=== PATIENT | female | born 1955 | race Caucasian/White ===

== ENCOUNTER 2018-03-03 16:15 | Inpatient (IN) | payer OTHER ==
[~2018-03-03] VITALS: Ht 162.6 cm; Wt 113.9 kg
[2018-03-03] MEDS ORDERED: 0.9 % SODIUM CHLORIDE 10 ML DISP.SYRIN. IV PRN (16:30)
[2018-03-03] MEDS ORDERED: IPRATRPIUM/ALBUTEROL 0.5/2.5MG 3 ML NEBU. ONE (16:40)
--- NOTE | 2018-03-03 16:44 | RAD ---
Single view of the chest. 03/03/2018 4:21 PM Indication: CHEST PAIN Comparison: None Findings: There is no focal consolidation. There is no pleural effusion or pneumothorax. The cardiomediastinal silhouette and pulmonary vasculature are within normal limits. No acute osseous abnormalities are seen. Impression: No evidence of acute cardiopulmonary process. Electronically signed by: Fausto Murphy MD (03/03/2018 4:40 PM) [facility]
[2018-03-03 16:45] LABS: BASO # 0.1 x10^3/uL (0.0-0.2); BASO % 1 % (0-3); EOS % 0 % (0-3); HEMATOCRIT 37.6 % (36.0-47.0); LYMPH # 1.1 x10^3/uL (1.0-4.8); LYMPH % 10 % (24-48); MEAN CORPUSCULAR HEMOGLOBIN 29 pg (25-35); MEAN CORPUSCULAR HGB CONC 35 g/dL (31-37); MEAN CORPUSCULAR VOLUME 83 fL (79-100); MONO # 0.5 x10^3/uL (0.0-1.1); MONO % 5 % (0-9); NEUT # 8.9 x10^3uL (1.8-7.7); NEUT % 84 % (31-73); PLATELET COUNT 181 x10^3/uL (140-400); RED BLOOD COUNT 4.55 x10^6/uL (3.50-5.40); RED CELL DISTRIBUTION WIDTH 13.2 % (11.5-14.5); WHITE BLOOD COUNT 10.6 x10^3/uL (4.0-11.0)
[2018-03-03] MEDS ORDERED: IPRATRPIUM/ALBUTEROL 0.5/2.5MG 3 ML NEBU. NEB ONE (16:45)
[2018-03-03] MEDS ORDERED: cefTRIAXone IV Push 1 GM VIAL. IVP ONE (16:45)
[2018-03-03] MEDS ORDERED: ACETAMINOPHEN 500 MG TABLET PO ONE (16:45)
[2018-03-03] MEDS: NORMAL SALINE IV SCH ×7 (16:49→22:21)
--- NOTE | 2018-03-03 16:54 | PHYS DOC ---
Adult General Chief Complaint Chief Complaint: SHORTNESS OF BREATH HPI HPI 62-year-old female presents with a several day history of cough and congestion. [facility] and started on doxycycline only took one dose because it really bothered her stomach. She's continued to have some abdominal pain since. Patient states she's been progressively more short of breath, coughing up greenish [place] phlegm and high fever. She states she has no energy. She denies any other significant medical problems.[] Review of Systems Review of Systems Constitutional: Reports fever[] Eyes: Denies change in visual acuity, redness, or eye pain [] HENT: Denies nasal congestion or sore throat [] Respiratory: Productive cough and shortness of breath[] Cardiovascular: No additional information not addressed in HPI [] GI: Denies abdominal pain, nausea, vomiting, bloody stools or diarrhea [] : Denies dysuria or hematuria [] Musculoskeletal: Denies back pain or joint pain [] Integument: Denies rash or skin lesions [] Neurologic: Denies headache, focal weakness or sensory changes [] Endocrine: Denies polyuria or polydipsia [] All other systems were reviewed and found to be within normal limits, except as documented in this note. Current Medications Current Medications Current Medications Medications (Trade) Dose Ordered Sig/Mgean Start Time Stop Time Status Last Admin Dose Admin Acetaminophen (Tylenol) 1,000 mg 1X ONCE 03/03/18 16:45 03/03/18 16:46 DC Albuterol/ Ipratropium (Duoneb) 3 ml STK-MED ONCE 03/03/18 16:40 03/03/18 16:41 DC Ceftriaxone Sodium 1 gm/ Sodium Chloride 50 ml @ 100 mls/hr 1X ONCE 03/03/18 16:30 03/03/18 16:59 UNV Ceftriaxone Sodium (Rocephin) 1 gm 1X ONCE 03/03/18 16:45 03/03/18 16:46 DC Fentanyl Citrate (Fentanyl 2ml Vial) 25 mcg PRN Q15MIN PRN 03/03/18 16:30 03/04/18 16:29 Sodium Chloride 3,330 ml @ 3,330 mls/hr Q1H 03/03/18 16:21 Sodium Chloride (Normal Saline Flush) 10 ml QSHIFT PRN 03/03/18 16:30 Allergies Allergies Allergies Coded Allergies Type Severity Reaction Last Updated Verified doxycycline Allergy Severe severe stomach burning 03/03/18 Yes ether Allergy Severe sob 03/03/18 Yes Physical Exam Physical Exam Constitutional: Well developed, well nourished, no acute distress, appears acutely ill. [] HENT: Normocephalic, atraumatic, bilateral external ears normal, oropharynx moist, no oral exudates, nose normal. [] Eyes: PERRLA, EOMI, conjunctiva normal, no discharge. [] Neck: Normal range of motion, no tenderness, supple, no stridor. [] Cardiovascular:Heart rate regular rhythm, no murmur [] Lungs & Thorax: Bibasilar rales left base greater than right diffuse wheezes[] Abdomen: Bowel sounds normal, soft, no tenderness, no masses, no pulsatile masses. [] Skin: Warm, dry, no erythema, no rash. [] Back: No tenderness, no CVA tenderness. [] Extremities: No tenderness, no cyanosis, no clubbing, ROM intact, no edema. [] Neurologic: Alert and oriented X 3, normal motor function, normal sensory function, no focal deficits noted. [] Psychologic: Affect normal, judgement normal, mood normal. [] Current Patient Data Lab Results Laboratory Tests Test 03/03/18 16:32 White Blood Count 10.6 x10^3/uL (4.0-11.0) Red Blood Count 4.55 x10^6/uL (3.50-5.40) Hemoglobin 13.0 g/dL (12.0-15.5) Hematocrit 37.6 % (36.0-47.0) Mean Corpuscular Volume 83 fL (79-100) Mean Corpuscular Hemoglobin 29 pg (25-35) Mean Corpuscular Hemoglobin Concent 35 g/dL (31-37) Red Cell Distribution Width 13.2 % (11.5-14.5) Platelet Count 181 x10^3/uL (140-400) Neutrophils (%) (Auto) 84 % (31-73) H Lymphocytes (%) (Auto) 10 % (24-48) L Monocytes (%) (Auto) 5 % (0-9) Eosinophils (%) (Auto) 0 % (0-3) Basophils (%) (Auto) 1 % (0-3) Neutrophils # (Auto) 8.9 x10^3uL (1.8-7.7) H Lymphocytes # (Auto) 1.1 x10^3/uL (1.0-4.8) Monocytes # (Auto) 0.5 x10^3/uL (0.0-1.1) Eosinophils # (Auto) 0.0 x10^3/uL (0.0-0.7) Basophils # (Auto) 0.1 x10^3/uL (0.0-0.2) EKG EKG [] Radiology/Procedures Radiology/Procedures [] Impressions: PROCEDURE: PORTABLE CHEST 1V Single view of the chest. 03/03/2018 4:21 PM Indication: CHEST PAIN Comparison: None Findings: There is no focal consolidation. There is no pleural effusion or pneumothorax. The cardiomediastinal silhouette and pulmonary vasculature are within normal limits. No acute osseous abnormalities are seen. Impression: No evidence of acute cardiopulmonary process. EKG: Normal sinus rhythm rate of [address]-T changes Course & Med Decision Making Course & Med Decision Making Pertinent Labs and Imaging studies reviewed. (See chart for details) [ED course: Evaluation reveals a 62-year-old female with what sounds like a 5 day history of progressive respiratory symptoms culminating today and high fever and productive cough. To me, her chest x-ray looks as if there may be a left lower lobe infiltrate however was read as negative. Patient was given IV fluids, Tylenol, Rocephin 1 g IV and a DuoNeb during her stay in the department and she did improve to some degree. Her oxygen saturation on room air was 90%. I spoke with the patient and let her know that she would likely need to stay in the hospital and she was agreeable to do so. I spoke with Dr. ACUNA who agreed to accept the patient for admission.] Dragon Disclaimer Dragon Disclaimer This electronic medical record was generated, in whole or in part, using a voice recognition dictation system. Departure Departure: Impression: Primary Impression: Pneumonia Additional Impression: Hypokalemia Disposition: ADMITTED INPATIENT Admitting Physician: Zoltan Acuna Condition: GUARDED Referrals: NON,STAFF (PCP) Problem Qualifiers Primary Impression: Pneumonia Pneumonia type: due to unspecified organism Laterality: left Lung location : lower lobe of lung Qualified Codes: J18.1 - Lobar pneumonia, unspecified organism MICHAEL FERNANDEZ DO Mar 03, 2018 16:54
[2018-03-03 16:59] LABS: ALBUMIN 2.6 g/dL (3.4-5.0); ALBUMIN/GLOBULIN RATIO 0.7 (1.0-1.7); CREATININE 0.9 mg/dL (0.6-1.0); TOTAL BILIRUBIN 1.1 mg/dL (0.2-1.0); TOTAL PROTEIN 6.6 g/dL (6.4-8.2)
[2018-03-03 17:01] LABS: POTASSIUM 2.7 mmol/L (3.5-5.1)
[2018-03-03] MEDS ORDERED: AZITHROMYCIN 500 MG in IV NORMAL SALINE 250ML 250 ML IV ONE (17:15)
[2018-03-03] MEDS ORDERED: ACETAMINOPHEN 325 MG TABLET PO PRN (17:15)
[2018-03-03] MEDS ORDERED: AZITHROMYCIN 500 MG VIAL. IV ONE (17:18)
[2018-03-03] MEDS ORDERED: IV NORMAL SALINE 250ML 250 ML ONE (17:18)
--- NOTE | 2018-03-03 17:41 | EKG ---
[address] [address] Test Date: 2018-03-03 Test Time: 16:22:27 Pat Name: TRISTON DWYER Department: Room: Gender: F Roof Technician: : 1955 Requested By: MICHAEL FERNANDEZ Order Number: [id number] Reading MD: Measurements Intervals [place] Rate: 90 P: -7 ID: [id number] QRS: -30 QRSD: 86 T: 89 QT: 372 QTc: 459 Interpretive Statements SINUS RHYTHM ABNORMAL LEFT AXIS DEVIATION LEFT ANTERIOR FASCICULAR BLOCK CONSIDER RIGHT VENTRICULAR HYPERTROPHY QRS(T) CONTOUR ABNORMALITY CONSIDER ANTEROSEPTAL MYOCARDIAL DAMAGE T ABNORMALITY IN HIGH LATERAL LEADS ABNORMAL ECG RI6.01 No previous ECG available for comparison
[2018-03-03] MEDS ORDERED: ONDANSETRON ODT 4 MG TAB.RAPDIS PO ONE (17:45)
[2018-03-03] MEDS: POTASSIUM CHLORIDE 20 MEQ TABLET.ER. PO SCH (17:56)
[2018-03-03 18:55] VITALS: BP 94/55
[2018-03-03] MEDS ORDERED: ATOR10TA60 PO (20:03)
[2018-03-03] MEDS ORDERED: NYST15CR2 TP (20:03)
[2018-03-03] MEDS ORDERED: METO1TAB28 PO (20:03)
[2018-03-03] MEDS ORDERED: LOSA50TA6 PO (20:03)
[2018-03-03] MEDS ORDERED: INDA2.5T PO (20:03)
[2018-03-03] MEDS ORDERED: LIRA0.6P2 SQ (20:03)
[2018-03-03] MEDS ORDERED: GLIM4TAB2 PO (20:03)
[2018-03-03] MEDS ORDERED: SITA100T PO (20:03)
[2018-03-03] MEDS ORDERED: ACET325T9 PO (20:04)
[2018-03-03] MEDS: IV NORMAL SALINE 1,000ML 1,000 ML IV SCH (20:11)
[2018-03-03] MEDS: IPRATRPIUM/ALBUTEROL 0.5/2.5MG 3 ML NEBU. NEB SCH (21:00)
[2018-03-03 22:36] VITALS: BP 118/72
[2018-03-03 23:35] LABS: BACTERIA,URINE 0 /HPF (0-FEW); BILIRUBIN,URINE NEG (NEG); CLARITY,URINE CLEAR; COLOR,URINE YELLOW; GLUCOSE,URINE NEG (NEG); NITRITE,URINE NEG (NEG); RBC,URINE 0 /HPF (0-2); SQUAMOUS EPITHELIAL CELL,UR FEW /LPF; UROBILINOGEN,URINE 0.2 mg/dL (0.2 mg/dL)
[2018-03-04] MEDS: ONDANSETRON PF 4 MG/2 ML VIAL. IV PRN ×2 (03:28→08:57)
[2018-03-04] MEDS: IV NORMAL SALINE 1,000ML 1,000 ML IV SCH ×2 (04:19→10:05)
[2018-03-04 05:00] VITALS: BP 119/65
[2018-03-04] MEDS: IPRATRPIUM/ALBUTEROL 0.5/2.5MG 3 ML NEBU. NEB SCH ×3 (05:55→14:41)
[2018-03-04] MEDS ORDERED: ACETAMINOPHEN 325 MG TABLET PO PRN (06:00)
[2018-03-04] MEDS ORDERED: NYSTATIN/TRIAMCIN TOPICAL CREAM 15GM TUBE. TP PRN (06:15)
[2018-03-04 07:43] LABS: HEMATOCRIT 31.6 % (36.0-47.0); HEMOGLOBIN 11.1 g/dL (12.0-15.5); RED BLOOD COUNT 3.82 x10^6/uL (3.50-5.40); RED CELL DISTRIBUTION WIDTH 13.1 % (11.5-14.5); WHITE BLOOD COUNT 7.5 x10^3/uL (4.0-11.0)
[2018-03-04 07:54] LABS: ALBUMIN/GLOBULIN RATIO 0.5 (1.0-1.7); CALCIUM 7.1 mg/dL (8.5-10.1); CREATININE 0.7 mg/dL (0.6-1.0); GFR 84.2; TOTAL BILIRUBIN 0.8 mg/dL (0.2-1.0); TOTAL PROTEIN 5.9 g/dL (6.4-8.2)
[2018-03-04 07:57] LABS: POTASSIUM 2.8 mmol/L (3.5-5.1)
[2018-03-04] MEDS: POTASSIUM CHLORIDE 10MEQ 50 ML IV SCH ×4 (08:59→12:10)
[2018-03-04] MEDS: LIRAGLUTIDE SQ SCH (09:00)
[2018-03-04] MEDS ORDERED: INDAPAMIDE 1.25 MG TABLET PO SCH (09:00)
[2018-03-04] MEDS: POTASSIUM CHLORIDE 20 MEQ TABLET.ER. PO SCH ×2 (09:00→19:49)
[2018-03-04] MEDS ORDERED: hydroCHLOROthiazide 12.5 MG CAPSULE PO SCH (09:00)
[2018-03-04] MEDS ORDERED: HYDROcodone/APAP 5/325MG 1 TAB TABLET PO PRN (09:45)
[2018-03-04] MEDS: LINAGLIPTIN 5 MG TABLET PO SCH (10:17)
[2018-03-04] MEDS: GLIMEPIRIDE 2 MG TABLET PO SCH ×2 (10:17→17:22)
[2018-03-04] MEDS: LOSARTAN 50 MG TABLET. PO SCH (10:18)
[2018-03-04] MEDS: METOPROLOL SUCC 24HR ER 50 MG TAB.ER.24H. PO SCH (10:18)
[2018-03-04] MEDS: ENOXAPARIN 40 MG/0.4 ML SYRINGE. SQ SCH ×2 (10:19→19:49)
[2018-03-04 11:01] VITALS: BP 109/65
[2018-03-04 15:25] VITALS: BP 95/61
[2018-03-04 16:02] LABS: CALCIUM 7.9 mg/dL (8.5-10.1); CREATININE 0.8 mg/dL (0.6-1.0); GFR 72.2; POTASSIUM 3.1 mmol/L (3.5-5.1)
--- NOTE | 2018-03-04 17:16 | HP ---
ADMIT DATE: 03/03/2018 HISTORY OF PRESENT ILLNESS: The patient is a 62-year-old female patient, who came to the Emergency Room complaining of cough, chest congestion. This started last . She was seen last Wednesday at the [facility] and was started on doxycycline. She apparently took only one dose and that bothered her stomach. She continued to have abdominal pain. Since then, the patient states that she has been progressively more short of breath, coughing up greenish [place] phlegm with high fever. She has also what seems to be shaking chills, stating that she has no energy and she was evaluated in the Emergency Room, although the x-ray did not show any pneumonia. She has prominent crackles in the left side posteriorly and a decision was made to admit her with the diagnosis of ____. DOM ACUNA MD DR: CECILIA/opal JOB#: [id number] / [id number]
[2018-03-04] MEDS: cefTRIAXone IV Push 1 GM VIAL. IVP SCH (17:22)
--- NOTE | 2018-03-04 17:44 | HP ---
ADMIT DATE: 03/03/2018 HISTORY OF PRESENT ILLNESS: The patient is a 62-year-old female patient who came to the Emergency Room, complaining of several days history of cough and chest congestion, started last about a week ago. Her symptoms have worsened and on Wednesday, she went to [facility] and was started on doxycycline. She took only one dose because it bothered her stomach and she continued to have some abdominal pain since then. Her shortness of breath has progressively worsened. She continued to have cough with greenish sputum and high fever. She has also episodes of shaking chills and was evaluated in the Emergency Room and was admitted with diagnosis of community-acquired pneumonia and was started with IV Rocephin and Zithromax. PAST MEDICAL HISTORY: Significant for hypertension, type 2 diabetes mellitus, hypertriglyceridemia, fibromyalgia. PAST SURGICAL HISTORY: Significant for partial small ____ resection, wisdom tooth extraction and appendectomy. ALLERGIES: SHE IS ALLERGIC TO ETHER AND DOXYCYCLINE. MEDICATIONS: She is currently on following medications: She is on atorvastatin calcium 10 mg at bedtime, metoprolol succinate/hydrochlorothiazide and Dutoprol 100/12.5 mg 1 tablet once a day, losartan potassium 50 mg once a day, acetaminophen 650 mg every 6 hours, indapamide 2.5 mg daily, sitagliptin phosphate for Januvia 100 mg once a day, Victoza 30 units subcutaneously daily, glimepiride 4 mg tablet twice a day and nystatin-triamcinolone cream applied topically twice a day. FAMILY HISTORY: Significant for one brother who at the age of 76 because of complication of surgery. Her father in his 70s and mother at the age of 67, exact cause of is not clear. SOCIAL HISTORY: She is , has a son and a daughter. She never smoked, does not drink alcohol or recreational drugs. She is a homemaker REVIEW OF SYSTEMS: The patient denied any blurring of vision, did have cataract and diplopia since childhood. Denied any glaucoma or macular degeneration. She has never had any diabetic retinopathy and did not require any laser photocoagulation. Denied any tinnitus, earache or sensorineural deafness. Denied any nosebleeds, stuffy nose or postnasal drip. Denied any sore throat, sore tongue, toothache, hoarseness of voice or difficulty swallowing. Denied any nausea, vomiting. Did complain of difficulty swallowing. Denied any diarrhea or constipation. She denied any hematemesis, melena or hematochezia. Denied any dysuria, frequency or hematuria. Denied any chest pain other than last week. She denied any orthopnea or paroxysmal nocturnal dyspnea. She did complain of cough with greenish sputum. Did complain of chills, rigors, or fever and shaking chills. Denied any dizziness, lightheadedness, or vertigo. PHYSICAL EXAMINATION: GENERAL: On arrival to the Emergency Room, the patient was afebrile, pale, no jaundice, cyanosis, or thyromegaly. No jugular venous distension. No limb edema. VITAL SIGNS: Her heart rate was 97, blood pressure was 141/66, temperature was 101, respiratory rate was 22 and oxygen saturation was 91% on room air. HEENT: Showed normocephalic, atraumatic. NECK: Supple. HEART: Showed normal first and second heart sounds. No gallop, rub or murmur. CHEST: Central trachea, equal chest expansion and air entry, vesicular sounds with crepitation mostly in the left side posteriorly. No rhonchi. ABDOMEN: Distended, soft, nontender. No guarding or rigidity. No organomegaly. All hernial orifices intact. Bowel sounds normal. NEUROLOGIC: She was awake, alert, responding appropriately. Cranial nerves intact. EXTREMITIES: She moves extremities without difficulty. She ambulates without assistance or assistive devices. LABORATORY DATA: On admission showed a white cell count of 10,600, hemoglobin 13, hematocrit 37, MCV 83 and platelet count of 181,000. Her chemistry on admission showed a serum sodium 137, potassium 2.7, chloride 101, bicarbonate 26, anion gap of 10, BUN 9, creatinine 0.9, estimated GFR was 63 mL per minute. Her glucose was 220, calcium was 8. Total bilirubin, AST, ALT, alkaline phosphatase were normal. Total protein was 6.6, albumin was 2.6. Urinalysis was essentially unremarkable. Chest x-ray showed that there is no focal consolidation. There is no pleural effusion or pneumothorax. The cardiomediastinal silhouette and pulmonary vasculature are within normal limits. No acute osseous abnormalities are seen. ASSESSMENT AND PLAN: The patient was admitted with community-acquired pneumonia, started on IV ceftriaxone as well as Zithromax. She was continued on all her other medications. My plan is to obviously we will have Victoza, so we will switch her to insulin sliding scale. I will hold her indapamide and her losartan, and will replenish her potassium and will decide on further management accordingly. DOM ACUNA MD DR: CECILIA/opal JOB#: [id number] / [id number]
[2018-03-04 19:25] VITALS: BP 108/72
[2018-03-04] MEDS: ATORVASTATIN CALCIUM 10 MG TABLET. PO SCH (19:48)
[2018-03-04] MEDS: LACTOBACILLUS RHAMNOSUS GG 1 CAPSULE. PO SCH (19:48)
[2018-03-04 21:57] VITALS: BP 133/77
--- NOTE | 2018-03-04 22:36 | PN ---
DATE: 03/04/2018 SUBJECTIVE: The patient is resting slightly propped up in bed, in no apparent distress. She continued to have cough and chest congestion, but generally feeling much better. PHYSICAL EXAMINATION: GENERAL: When I examined her this afternoon, she looked well and was clearly in no apparent respiratory distress, pale, but no jaundice, cyanosis or thyromegaly. No jugular venous distention. No lower limb edema. VITAL SIGNS: Her heart rate was 70, blood pressure was 95/81, temperature was 98.1, respiratory rate 20 and oxygen saturation was 98% on 2 liters of oxygen by nasal cannula. HEAD, EYES, EARS, NOSE AND THROAT: Showed normocephalic, atraumatic. NECK: Supple. HEART: Showed normal first and second heart sounds. No gallop, rub or murmur. CHEST: Clear to auscultation. No crepitation or rhonchi. Showed central trachea, equal bilateral expansion, air entry, vesicular sounds with crepitation, mostly in the left side posteriorly. I could not appreciate any rhonchi. ABDOMEN: Distended, soft, nontender. NEUROLOGIC: She is awake, alert, responding appropriately. All cranial nerves intact. She moves extremities without difficulty. Her intake was 4450, no output was recorded. LABORATORY DATA: This morning showed serum sodium of 140, potassium 2.8, chloride 108, bicarbonate 25, anion gap of 7, BUN 8. Creatinine was 0.7. Estimated GFR was 84 mL per minute. Her glucose 150. Calcium was 7.1. Total bilirubin, AST, ALT, alkaline phosphatase were normal. Total protein was 5.9, albumin was 2. Her white cell count was 7500, hemoglobin 11, hematocrit 32, MCV 83 and platelet count of 148,000. ASSESSMENT: Community-acquired pneumonia. To continue with IV ceftriaxone and Zyrtec, azithromycin, severe hypokalemia secondary to diuretics. She has been on hydrochlorothiazide and indapamide, so I discontinued that. She was given potassium supplement this morning and the potassium has risen to 3.1. So, I started her on potassium chloride 40 mEq 3 times a day. She has received too much fluid and her hands and feet are markedly swollen, so I discontinued IV fluid. Other problems include type 2 diabetes that seems to be reasonably controlled, hypertension, well-controlled. She is on metoprolol, losartan and two diuretics. PLAN: We will repeat her labs tomorrow and also chest x-ray as well as her hemoglobin A1c. DOM ACUNA MD DR: CECILIA/opal JOB#: [id number] / [id number]
[2018-03-05 05:15] VITALS: BP 137/64
[2018-03-05] MEDS: IPRATRPIUM/ALBUTEROL 0.5/2.5MG 3 ML NEBU. NEB SCH ×4 (05:21→21:44)
[2018-03-05 07:21] LABS: HEMATOCRIT 34.2 % (36.0-47.0); HEMOGLOBIN 11.9 g/dL (12.0-15.5); RED BLOOD COUNT 4.11 x10^6/uL (3.50-5.40); RED CELL DISTRIBUTION WIDTH 13.3 % (11.5-14.5); WHITE BLOOD COUNT 8.6 x10^3/uL (4.0-11.0)
[2018-03-05 07:34] LABS: ALBUMIN 2.3 g/dL (3.4-5.0); ALBUMIN/GLOBULIN RATIO 0.5 (1.0-1.7); CALCIUM 8.3 mg/dL (8.5-10.1); CREATININE 0.6 mg/dL (0.6-1.0); GFR 100.6; POTASSIUM 3.4 mmol/L (3.5-5.1); TOTAL BILIRUBIN 1.3 mg/dL (0.2-1.0); TOTAL PROTEIN 6.7 g/dL (6.4-8.2)
--- NOTE | 2018-03-05 07:35 | RAD ---
Chest, 2 views, 03/05/2018: HISTORY: Worsening shortness of breath Comparison is made to a study from 03/03/2018. The heart is within normal limits in size. The pulmonary vascularity now demonstrates loss of vascular margination. There are prominent pulmonary markings in the lower chest in a predominantly interstitial pattern. There is obscuration of the posterior costophrenic angles suggesting a tiny amount pleural fluid. IMPRESSION: Increasing pulmonary markings in a pattern suggesting mild congestive heart failure. Electronically signed by: Omega Mason MD (03/05/2018 7:32 AM) [facility]
[2018-03-05] MEDS: LIRAGLUTIDE SQ SCH (09:00)
[2018-03-05] MEDS: POTASSIUM CHLORIDE 20 MEQ TABLET.ER. PO SCH ×4 (09:00→21:27)
[2018-03-05] MEDS: ENOXAPARIN 40 MG/0.4 ML SYRINGE. SQ SCH ×2 (09:12→21:28)
[2018-03-05] MEDS: AZITHROMYCIN 250 MG TABLET. PO SCH (09:13)
[2018-03-05] MEDS: GLIMEPIRIDE 2 MG TABLET PO SCH ×2 (09:13→16:28)
[2018-03-05] MEDS: LACTOBACILLUS RHAMNOSUS GG 1 CAPSULE. PO SCH ×2 (09:13→21:27)
[2018-03-05] MEDS: LOSARTAN 50 MG TABLET. PO SCH (09:13)
[2018-03-05] MEDS: LINAGLIPTIN 5 MG TABLET PO SCH (09:15)
[2018-03-05] MEDS: METOPROLOL SUCC 24HR ER 50 MG TAB.ER.24H. PO SCH (09:15)
[2018-03-05 11:35] VITALS: BP 146/107
[2018-03-05] MEDS ORDERED: FUROSEMIDE 40 MG/4 ML VIAL IVP ONE (13:45)
[2018-03-05 15:15] VITALS: BP 104/64
[2018-03-05] MEDS: cefTRIAXone IV Push 1 GM VIAL. IVP SCH (16:28)
[2018-03-05 19:30] VITALS: BP 106/68
[2018-03-05] MEDS: ATORVASTATIN CALCIUM 10 MG TABLET. PO SCH (21:26)
[2018-03-05 23:11] LABS: HEMOGLOBIN A1C 6.8 % (4.8-5.6)
[2018-03-06 00:17] VITALS: BP 110/72
[2018-03-06 05:41] VITALS: BP 135/78
[2018-03-06] MEDS: IPRATRPIUM/ALBUTEROL 0.5/2.5MG 3 ML NEBU. NEB SCH ×4 (06:47→21:48)
[2018-03-06] MEDS: AZITHROMYCIN 250 MG TABLET. PO SCH (08:37)
[2018-03-06] MEDS: POTASSIUM CHLORIDE 20 MEQ TABLET.ER. PO SCH ×4 (08:37→20:33)
[2018-03-06] MEDS: GLIMEPIRIDE 2 MG TABLET PO SCH ×2 (08:38→17:05)
[2018-03-06] MEDS: LOSARTAN 50 MG TABLET. PO SCH (08:38)
[2018-03-06] MEDS: LACTOBACILLUS RHAMNOSUS GG 1 CAPSULE. PO SCH ×2 (08:38→20:33)
[2018-03-06] MEDS: LINAGLIPTIN 5 MG TABLET PO SCH (08:38)
[2018-03-06] MEDS: METOPROLOL SUCC 24HR ER 50 MG TAB.ER.24H. PO SCH (08:38)
[2018-03-06] MEDS: LIRAGLUTIDE SQ SCH (08:38)
[2018-03-06] MEDS: ENOXAPARIN 40 MG/0.4 ML SYRINGE. SQ SCH ×2 (08:39→20:34)
--- NOTE | 2018-03-06 10:16 | PN ---
DATE: 03/03/2018 SUBJECTIVE: The patient is resting, slightly propped up in bed, in no apparent respiratory distress. She is feeling slightly better than yesterday. She is managed to eat today. The cough is much improved; however, her chest x-ray showed that the heart is within normal limits in size. The pulmonary vascularity now demonstrates loss of vascular margination. There are prominent pulmonary markings in the lower chest predominantly interstitial pattern posterior costophrenic angle suggesting tiny amount of pleural fluid with the impression that the increasing pulmonary markings in a pattern suggestive of mild congestive heart failure. PHYSICAL EXAMINATION: GENERAL: When I examined her this morning; she was resting, slightly propped up in bed, in no apparent respiratory distress. No pallor, jaundice or cyanosis. No lymphadenopathy, no thyromegaly, but generalized anasarca. Both upper and lower extremities are markedly swollen. VITAL SIGNS: Her heart rate was 85, blood pressure was 146/107, temperature was 99.7, respiratory rate was 18 and oxygen saturation was 96% on 2 liters of oxygen. HEAD, EYES, EARS, NOSE AND THROAT: Showed normocephalic, atraumatic. NECK: Supple. HEART: Showed normal first and second heart sounds with no gallop, rub or murmur. CHEST: Clear to auscultation. Chest shows central trachea, equal bilateral expansion, air entry, vesicular sounds with crepitation in both sides posteriorly. I could not appreciate any rhonchi. ABDOMEN: Distended, soft, nontender. NEUROLOGIC: She was awake, alert, responding appropriately. Extraocular movements are intact. She moves extremities without difficulty. EXTREMITIES: Examination of the extremities showed no clubbing, cyanosis, but marked swelling of both lower and upper extremities. Her intake was 4448, no output was recorded. LABORATORY DATA: This morning showed serum sodium of 139, potassium 3.4, chloride 106, bicarbonate 24, anion gap of 9, BUN 6, creatinine 0.6. Estimated GFR was 100 mL per minute. Her glucose was 112, calcium was 8.3. Total bilirubin, AST, ALT, alkaline phosphatase slightly elevated. Her total protein was 6.7, albumin was 2.3. ASSESSMENT: 1. Community-acquired pneumonia for which she continues to be on IV ceftriaxone and Zithromax. 2. Severe hypokalemia secondary to diuretics. She apparently has been on hydrochlorothiazide and indapamide . PLAN: My plan is to continue with IV antibiotic. I will also add Lasix. Continue with potassium supplementation for now. I will arrange for her to have an echocardiogram and get the Cardiology consult to see her. I will decide further management accordingly. DOM ACUNA MD DR: CECILIA/opal JOB#: [id number] / [id number]
[2018-03-06 11:30] VITALS: BP 120/69
[2018-03-06] MEDS ORDERED: FUROSEMIDE 40 MG/4 ML VIAL IVP ONE (12:45)
[2018-03-06] MEDS: cefTRIAXone IV Push 1 GM VIAL. IVP SCH (17:07)
[2018-03-06 18:00] VITALS: BP 119/84
[2018-03-06] MEDS: ATORVASTATIN CALCIUM 10 MG TABLET. PO SCH (20:33)
[2018-03-06 23:03] VITALS: BP 111/60
[2018-03-07 05:57] VITALS: BP 117/85
[2018-03-07] MEDS: IPRATRPIUM/ALBUTEROL 0.5/2.5MG 3 ML NEBU. NEB SCH ×2 (06:57→09:29)
[2018-03-07 07:01] LABS: CREATININE 0.7 mg/dL (0.6-1.0); GFR 84.2; POTASSIUM 4.3 mmol/L (3.5-5.1)
[2018-03-07] MEDS: ENOXAPARIN 40 MG/0.4 ML SYRINGE. SQ SCH (08:34)
--- NOTE | 2018-03-07 08:34 | PN ---
DATE: 03/06/2018 PROGRESS NOTE SUBJECTIVE: The patient is sitting comfortably in her chair, eating her lunch. She stated that she had a shower that exhausted her, generally feeling much better. The swelling of her upper extremities has almost disappeared. However, she has chronic bilateral lower extremity edema that has been persistent according to her. OBJECTIVE: GENERAL: On examining her, she looked well, slightly pale, but no jaundice or cyanosis. No lymphadenopathy, no thyromegaly. No jugular venous distention, bilateral lower limb edema. VITAL SIGNS: Her heart rate was 74, blood pressure was 137/64. Her temperature was 97.7, respiratory rate was 16 and oxygen saturation was 94% on room air. HEAD, EYES, EARS, NOSE, AND THROAT: Showed normocephalic, atraumatic. NECK: Supple. HEART: Showed normal first and second heart sounds. No gallop, rub, or murmur. CHEST: Showed central trachea, equal bilateral expansion air entry, vesicular sounds with very few bilateral basal crepitation. I could not appreciate any rhonchi. ABDOMEN: Distended, soft, nontender. NEUROLOGIC: She is awake, alert, responding appropriately. Cranial nerves intact. She moves extremities without difficulty. Her intake over the last 24 hours was 950, output was 1815. LABORATORY DATA: As of yesterday, her white cell count was 8600, hemoglobin 12, hematocrit 34, MCV 83, and platelet count of 153,000. Her chemistry showed serum sodium 139, potassium 3.4, chloride 106, bicarbonate 24, anion gap of 9, BUN 6, creatinine of 0.6, estimated GFR was 100 mL per minute. Her glucose was 112. Hemoglobin A1c was 6.8. Her calcium was 8.3. Total bilirubin, AST, ALT, and alkaline phosphatase were normal. Total protein was 6.7, albumin was 2.3. Her blood cultures are so far negative. ASSESSMENT AND PLAN: 1. Community-acquired pneumonia. She continues to be on IV ceftriaxone and Zithromax. She is afebrile. Her white cell count is normal. 2. Severe hypokalemia, improving, although despite all the potassium, her serum potassium this morning was only 3.4, questionable of congestive heart failure for which we did consult the authorizer and she was treated with IV Lasix yesterday. We did order an echocardiogram that was not done yet. DOM ACUNA MD DR: Ashia JOB#: [id number] / [id number]
[2018-03-07] MEDS: POTASSIUM CHLORIDE 20 MEQ TABLET.ER. PO SCH ×2 (08:35→13:08)
[2018-03-07] MEDS: METOPROLOL SUCC 24HR ER 50 MG TAB.ER.24H. PO SCH (08:36)
[2018-03-07] MEDS: GLIMEPIRIDE 2 MG TABLET PO SCH (08:36)
[2018-03-07] MEDS: LACTOBACILLUS RHAMNOSUS GG 1 CAPSULE. PO SCH (08:36)
[2018-03-07] MEDS: AZITHROMYCIN 250 MG TABLET. PO SCH (08:36)
[2018-03-07] MEDS: LINAGLIPTIN 5 MG TABLET PO SCH (08:36)
[2018-03-07] MEDS: LOSARTAN 50 MG TABLET. PO SCH (08:36)
[2018-03-07] MEDS: LIRAGLUTIDE SQ SCH (08:37)
--- NOTE | 2018-03-07 09:35 | PDOC ---
PROGRESS NOTES Diagnosis Problem Problems Medical Problems: (1) Hypokalemia Status: Acute (2) Pneumonia Status: Acute Assessment Problems Medical Problems: (1) Hypokalemia Status: Acute (2) Pneumonia Status: Acute 1. acute CHF - good diuresis with IV lasix yesterday. Echo for LV function pending. 2. CAP - mgmt per PCP Objective Vital Signs Date Time Temp Pulse Resp B/P (MAP) Pulse Ox O2 Delivery O2 Flow Rate FiO2 03/07/18 09:29 95 Room Air 03/07/18 08:36 69 117/85 03/07/18 05:57 97.8 18 03/06/18 06:50 1.0 Intake and Output 03/07/18 07:00 Intake Total 795 ml Output Total 3900 ml Balance -3105 ml Intake Oral 795 ml Output Urine Total 3900 ml Review of Relevant I have reviewed the following items pete (where applicable) has been applied. Labs Laboratory Tests Test 03/07/18 06:25 Sodium Level 141 mmol/L (136-145) Potassium Level 4.3 mmol/L (3.5-5.1) Chloride Level 105 mmol/L (98-107) Carbon Dioxide Level 29 mmol/L (21-32) Anion Gap 7 (6-14) Blood Urea Nitrogen 7 mg/dL (7-20) Creatinine 0.7 mg/dL (0.6-1.0) Estimated GFR (Cockcroft-Gault) 84.2 Glucose Level 158 mg/dL (70-99) Calcium Level 9.0 mg/dL (8.5-10.1) Magnesium Level 2.0 mg/dL (1.8-2.4) Microbiology 03/03/18 Blood Culture - Preliminary, Resulted 03/03/18 Blood Culture Result 1 (NAN) - Preliminary, Resulted Medications Current Medications Sodium Chloride (Normal Saline Flush) 10 ml QSHIFT PRN IV AFTER MEDS AND BLOOD DRAWS; Start 03/03/18 at 16:30 Sodium Chloride 3,330 ml @ 3,330 mls/hr Q1H IV Last administered on 03/03/18at 18:50; Start 03/03/18 at 16:21; Stop 03/03/18 at 22:23; Status DC Fentanyl Citrate (Fentanyl 2ml Vial) 25 mcg PRN Q15MIN PRN IV PAIN GREATER THAN 3/10 Last administered on 03/03/18at 16:50; Start 03/03/18 at 16:30; Stop 03/04 at 16:29; Status DC Ceftriaxone Sodium 1 gm/ Sodium Chloride 50 ml @ 100 mls/hr 1X ONCE IV ; Start 03/03/18 at 16:30; Stop 03/03/18 at 16:59; Status UNV Acetaminophen (Tylenol) 1,000 mg 1X ONCE PO Last administered on 03/03/18at 16: 49; Start 03/03/18 at 16:45; Stop 03/03/18 at 16:46; Status DC Albuterol/ Ipratropium (Duoneb) 3 ml 1X ONCE NEB Last administered on at 16:42; Start 03/03/18 at 16:45; Stop 03/03/18 at 16:46; Status DC Ceftriaxone Sodium (Rocephin) 1 gm 1X ONCE IVP Last administered on 03/03/18at 16:45; Start 03/03/18 at 16:45; Stop 03/03/18 at 16:46; Status DC Albuterol/ Ipratropium (Duoneb) 3 ml STK-MED ONCE .ROUTE ; Start 03/03/18 at 16: 40; Stop 03/03/18 at 16:41; Status DC Ondansetron HCl (Zofran) 4 mg PRN Q4HRS PRN IV NAUSEA/VOMITING Last administered on 03/04/18at 08:57; Start 03/03/18 at 17:30; Stop 03/04/18 at 17:29; Status DC Sodium Chloride 1,000 ml @ 125 mls/hr Q8H IV Last administered on 03/04/18at 10: 05; Start 03/03/18 at 17:01; Stop 03/04/18 at 16:31; Status DC Acetaminophen (Tylenol) 650 mg PRN Q4HRS PRN PO FEVER; Start 03/03/18 at 17:15; Stop 03/04/18 at 10:09; Status DC Albuterol/ Ipratropium (Duoneb) 3 ml RTQID NEB Last administered on 03/04/18at 14 :41; Start 03/03/18 at 20:00; Stop 03/04/18 at 19:59; Status DC Azithromycin 500 mg/Sodium Chloride 250 ml @ 250 mls/hr 1X ONCE IV Last administered on 03/03/18at 17:15; Start 03/03/18 at 17:15; Stop 03/03/18 at 18:14; Status DC Potassium Chloride (Klor-Con) 40 meq DAILY PO Last administered on 03/05/18at 09: 14; Start 03/03/18 at 18:00; Stop 03/05/18 at 10:35; Status DC Sodium Chloride 250 ml @ As Directed STK-MED ONCE .ROUTE ; Start 03/03/18 at 17: 18; Stop 03/03/18 at 17:19; Status DC Azithromycin (Zithromax) 500 mg STK-MED ONCE IV ; Start 03/03/18 at 17:18; Stop 03/03/18 at 17:19; Status DC Ondansetron HCl (Zofran Odt) 4 mg 1X ONCE PO Last administered on 03/03/18at 17: 56; Start 03/03/18 at 17:45; Stop 03/03/18 at 17:46; Status DC Enoxaparin Sodium (Lovenox 40mg Syringe) 40 mg Q12HR SQ Last administered on 08/14at 08:34; Start 03/04/18 at 09:00 Acetaminophen (Tylenol) 650 mg PRN Q6HRS PRN PO PAIN / TEMP Last administered on 03/04/18at 21:54; Start 03/04/18 at 06:00 Losartan Potassium (Cozaar) 50 mg DAILY PO Last administered on 03/07/18at 08:36 ; Start 03/04/18 at 09:00 Atorvastatin Calcium (Lipitor) 10 mg QHS PO Last administered on 03/06/18at 20: 33; Start 03/04/18 at 21:00 Glimepiride (Amaryl) 4 mg BIDWMEALS PO Last administered on 03/07/18at 08:36; Start 03/04/18 at 08:00 Indapamide (Lozol) 2.5 mg DAILY PO Last administered on 03/04/18at 10:18; Start 03/04/18 at 09:00; Stop 03/04/18 at 16:27; Status DC Non-Formulary Medication (Liraglutide (Victoza 3-Nahid)) 30 units DAILY SQ ; Start 03/04/18 at 09:00; Status UNV Metoprolol Succinate (Toprol Xl) 100 mg DAILY PO Last administered on 08:36; Start 03/04/18 at 09:00 Nystatin/ Triamcinolone Acetonide (Mycolog Ii) 1 delia PRN BID PRN TP YEAST INFECTION OF SKIN; Start 03/04/18 at 06:15 Linagliptin (Tradjenta) 5 mg DAILY PO Last administered on 03/07/18at 08:36; Start 03/04/18 at 09:00 Hydrochlorothiazide (Microzide) 12.5 mg DAILY PO Last administered on 03/04/18 10:17; Start 03/04/18 at 09:00; Stop 03/04/18 at 15:34; Status DC Potassium Chloride 50 ml @ 50 mls/hr Q1H IV Last administered on 03/04/18 12:10 ; Start 03/04/18 at 08:15; Stop 03/04/18 at 12:14; Status DC Acetaminophen/ Hydrocodone Bitart (Lortab 5/325) 1 tab PRN Q6HRS PRN PO PAIN Last administered on 03/04/18 10:16; Start 03/04/18 at 09:45 Ceftriaxone Sodium 1 gm/ Sodium Chloride 50 ml @ 100 mls/hr Q24H IV ; Start 03/04/18 at 15:45; Status UNV Azithromycin (Zithromax) 500 mg DAILY PO Last administered on 03/07/18 08:36; Start 03/05/18 at 09:00 Ceftriaxone Sodium (Rocephin) 1 gm Q24H IVP Last administered on 03/06/18at 17: 07; Start 03/04/18 at 16:00 Lactobacillus Rhamnosus (Culturelle) 1 cap BID PO Last administered on 08:36; Start 03/04/18 at 21:00 Potassium Chloride (Klor-Con) 40 meq TID PO Last administered on 03/04/18 19:49 ; Start 03/04/18 at 21:00; Stop 03/05/18 at 13:43; Status DC Albuterol/ Ipratropium (Duoneb) 3 ml RTQID NEB Last administered on 03/07/18at 09:29; Start 03/05/18 at 08:00 Furosemide (Lasix) 40 mg 1X ONCE IVP Last administered on 03/05/18at 13:45; Start 03/05/18 at 13:45; Stop 03/05/18 at 13:49; Status DC Potassium Chloride (Klor-Con) 40 meq QID PO Last administered on 03/07/18at 08: 35; Start 03/05/18 at 17:00 Furosemide (Lasix) 40 mg 1X ONCE IVP Last administered on 03/06/18at 13:58; Start 03/06/18 at 12:45; Stop 03/06/18 at 12:46; Status DC Active Scripts Active Reported Tylenol (Acetaminophen) 325 Mg Tablet 650 Mg PO PRN Q6HRS PRN Indapamide 2.5 Mg Tablet 2.5 Mg PO DAILY Dutoprol 100-12.5 Mg Tablet (Metoprolol Succinate/Hctz) 1 Each Tab.er.24h 1 Tab PO DAILY Nystatin-Triamcinolone Cream (Nystatin/Triamcin) 15 Gm Cream..g. 1 Delia TP PRN BID PRN Victoza 3-Nahid (Liraglutide) 0.6 Mg/0.1 Ml Pen.injctr 30 Units SQ DAILY Glimepiride 4 Mg Tablet 4 Mg PO BID Losartan Potassium 50 Mg Tablet 50 Mg PO DAILY Januvia (Sitagliptin Phosphate) 100 Mg Tablet 100 Mg PO DAILY Atorvastatin Calcium 10 Mg Tablet 10 Mg PO DAILY Vitals/I & O Vital Sign - Last 24 Hours 03/06/18 03/06/18 03/06/18 03/06/18 11:30 15:37 18:00 20:00 Temp 98.4 Pulse 92 70 Resp 18 18 B/P (MAP) 120/69 (86) 119/84 (96) Pulse Ox 97 95 95 O2 Delivery Room Air Room Air Room Air Room Air 03/06/18 03/06/18 03/07/18 03/07/18 21:50 23:03 05:57 08:36 Temp 98.3 97.8 Pulse 78 69 69 Resp 18 18 B/P (MAP) 111/60 (77) 117/85 (96) 117/85 Pulse Ox 92 95 93 O2 Delivery Room Air Room Air Room Air 03/07/18 03/07/18 08:36 09:29 Pulse 69 B/P (MAP) 117/85 Pulse Ox 95 O2 Delivery Room Air Intake and Output 03/06/18 03/06/18 03/07/18 15:00 23:00 07:00 Intake Total 195 ml 360 ml 240 ml Output Total 1250 ml 1100 ml 1550 ml Balance -1055 ml -740 ml -1310 ml ARIANNA DANIELS APRN Mar 07, 2018 09:35
[2018-03-07 11:00] VITALS: BP 144/88
--- NOTE | 2018-03-07 13:14 | RAD ---
AP and Lateral Views of the Chest 03/07/2018 9:39 AM Indication: Congestive heart failure Comparison: 2 views of the chest March 05, 2018 central vascular congestion and interstitial edema appears unchanged Findings: Mild interstitial thickening and central vascular congestion persists. The appearance is minimally improved. No significant pleural effusion is identified. Heart size remains top normal. No acute osseous changes are seen. IMPRESSION: Mild interstitial thickening and central vascular congestion, minimally improved in the interim Electronically signed by: Fausto Murphy MD (03/07/2018 1:10 PM) [id number]
--- NOTE | 2018-03-07 14:02 | CARD ---
MR#: [id number] Date of Study: 03/07/2018 Ordering Physician: DOM ACUNA, Referring Physician: Gina CANNON: CYNTHIA Benito APPROVED REPORT EXAM: LIMITED Two-dimensional and M-mode echocardiogram. Other Information Quality : AverageHR: 66bpm INDICATION LV Function:Systolic RISK FACTORS Obesity 2D DIMENSIONS RVDd3.7 (2.9-3.5cm)Left Atrium(2D)3.4 (1.6-4.0cm) IVSd1.3 (0.7-1.1cm)Aortic Root(2D)3.2 (2.0-3.7cm) LVDd4.0 (3.9-5.9cm)LVOT Diameter1.9 (1.8-2.4cm) PWd1.3 (0.7-1.1cm)LVDs2.9 (2.5-4.0cm) FS (%) 28.0 %SV37.5 ml LVEF(%)54.8 (>50%) LEFT VENTRICLE The left ventricle is normal size. There is mild to moderate concentric left ventricular hypertrophy. Left ventricle systolic function is low normal. The Ejection Fraction is 50-55%. There is normal LV segmental wall motion. RIGHT VENTRICLE The right ventricle is mildly dilated. The right ventricle is mildly hypertrophied. The right ventric ular systolic function is normal. ATRIA The left atrium size is normal. The right atrium size is normal. AORTIC VALVE The aortic valve is mildly calcified. Restricted right coronary cusp. MITRAL VALVE The mitral valve is thickened but opens well. TRICUSPID VALVE The tricuspid valve is normal in structure and function. PULMONIC VALVE The pulmonic valve is not well visualized. GREAT VESSELS The aortic root is normal in size. The IVC is normal in size and collapses >50% with inspiration. PERICARDIAL EFFUSION There is no pleural effusion. There is no evidence of significant pericardial effusion. Critical Notification Critical Value: No <Conclusion> There is mild to moderate concentric left ventricular hypertrophy. Left ventricle systolic function is low normal. The Ejection Fraction is 50-55%. There is normal LV segmental wall motion. No clear significant valvular disease. Signed by : Peter Dobbs, Electronically Approved : 03/07/2018 14:00:54
[2018-03-07] MEDS ORDERED: POTA20TA4 PO (14:48)
[2018-03-07] MEDS ORDERED: FURO-68 PO (14:48)
[2018-03-07] MEDS ORDERED: AZIT250T PO (14:48)
[2018-03-07] MEDS ORDERED: CEFP200T PO (14:48)
[2018-03-07] MEDS ORDERED: METO50TA29 PO (14:50)
[2018-03-07 15:00] VITALS: BP 145/85
== END 2018-03-07 16:10 | disposition home or self-care (01) | DRG 871 ==
LOC: ER 16:15 → 1 SOUTH 17:30 → ER 18:30
PROVIDERS: ADMIT Internal Medicine; ATTEND Internal Medicine
PROC: 5A09357 Assistance with Respiratory Ventilation, Less than 24 Consecutive Hours, Continuous Positive Airway Pressure (ICD-10-PCS; principal; 2018-03-05)
DX: A41.9 Sepsis, unspecified organism (principal); J18.1 Lobar pneumonia, unspecified organism; E11.9 Type 2 diabetes mellitus without complications; E78.1 Pure hyperglyceridemia; E87.6 Hypokalemia; I11.0 Hypertensive heart disease with heart failure; I50.9 Heart failure, unspecified; M79.7 Fibromyalgia; T50.2X5A Adverse effect of carbonic-anhydrase inhibitors, benzothiadiazides and other diuretics, initial encounter; Z88.8 Allergy status to other drugs, medicaments and biological substances; Z90.49 Acquired absence of other specified parts of digestive tract; Y92.89 Other specified places as the place of occurrence of the external cause
CPT/HCPCS: 36415; 71045; 71046; 80048; 80053; 81001; 83036; 83605; 83690; 83735; 84484; 85025; 85027; 87040; 87205; 93005; 93308; 94640; 96365; 96375; J0456; J0696; J1650; J1940; J2405; J3010; J3480; J7050; J7620; Q0162; 99285-25; J7030

== ENCOUNTER → 2018-03-21 | Outpatient (CLI) | payer OTHER ==
[2018-03-07 15:00] VITALS: BP 145/85
[~2018-03-21] MED LIST: ACET325T9 PO; ATOR10TA60 PO; AZIT250T PO; CEFP200T PO; FURO-68 PO; GLIM4TAB2 PO; INDA2.5T PO; LIRA0.6P2 SQ; LOSA50TA6 PO; METO1TAB28 PO; METO50TA29 PO; NYST15CR2 TP; POTA20TA4 PO; SITA100T PO
--- NOTE | 2018-03-21 15:38 | RAD ---
CHEST PA LATERAL Clinical indications: Cough COMPARISON: March 07, 2018 Findings: No acute lung infiltrate or pleural effusion or pulmonary edema or lung mass or pneumothorax is seen. Mild cardiomegaly is evident. This is stable. The pulmonary vasculature, mediastinum and both juany are unremarkable. The osseous structures appear intact. Impression: No acute radiographic abnormality is seen. Electronically signed by: Abraham Patel MD (03/21/2018 3:34 PM) [id number]
== END | disposition home or self-care (01) ==
LOC: DXRAD 14:30
DX: J18.1 Lobar pneumonia, unspecified organism (principal); I11.0 Hypertensive heart disease with heart failure; E11.9 Type 2 diabetes mellitus without complications; I50.9 Heart failure, unspecified; E78.1 Pure hyperglyceridemia
CPT/HCPCS: 71046